=== PATIENT | male | born 1965 | race Caucasian/White ===

== ENCOUNTER 2020-03-17 07:51 | Day surgery (SDC) | payer BC ==
[2020-03-15 10:33] VITALS: BMI 31.1
[~2020-03-17 07:51] MED LIST: LACTATED RINGERS 1,000 ML IV SCH; LIDOCAINE 1% (10MG/ML) FOR IV START INTRADERMA PRN
[2020-03-17 08:27] VITALS: RESP 16; TEMP 97.2
[2020-03-17] MEDS ORDERED: GLYCOPYRROLATE 0.2 MG/ML 2 ML VIAL ONE (09:22)
[2020-03-17] MEDS ORDERED: PROPOFOL 10 MG/ML 20 ML VIAL IV ONE (09:22)
[2020-03-17] MEDS ORDERED: LIDOCAINE 1% INJ 10MG/ML (20 ML MDV) ONE (09:22)
[2020-03-17 10:10] VITALS: BP 119/71
--- NOTE | 2020-03-17 10:17 | P.PCN ---
Date of Procedure: 03/17/20 Description of Procedure: BRIEF HISTORY: Patient is a 54-year-old male presenting for outpatient colonoscopy for screening from malignant neoplasm of the colon. No prior history of colonoscopy. No change in bowel habits, blood per rectum or abdominal pain. PROCEDURE PERFORMED: Colonoscopy with polypectomy. PREOPERATIVE DIAGNOSIS: Screening for malignant neoplasm of the colon, no prior colonoscopy. ESTIMATED BLOOD LOSS: Minimal. IV sedation per Anesthesia. PROCEDURE: After informed consent was obtained, the patient, was brought into the endoscopy unit. IV sedation was administered by Anesthesia under continuous monitoring. Digital rectal examination was normal. Initially the Olympus CF-190 flexible video colonoscope was then inserted in the rectum, gradually advanced into the cecum without any difficulty. Careful examination was performed as the scope was gradually being withdrawn. Ileocecal valve and the appendiceal orifice were visualized and appeared normal. Prep was excellent. Mucosa of the cecum, ascending colon, transverse colon, descending colon, sigmoid colon, and rectum appeared normal. Multiple sigmoid diverticula noted. The patient had 4 diminutive polyps removed from the cecum, transverse colon, and sigmoid colon measuring 2-3 mm in size with cold forcep polypectomy. 2 flat rectal polyps removed with cold snare polypectomy measuring 6 and 7 mm in size. One rectosigmoid polyp measuring 1 cm in size removed with cold snare polypectomy. Retroflexion was performed in the rectum and no lesions were seen. The patient tolerated the procedure well. IMPRESSION: 3 diminutive polyps removed from the cecum, transverse colon and sigmoid colon with cold forceps polypectomy. 3 flat polyps to the rectum and one from the rectosigmoid removed with cold snare polypectomy. Mild sigmoid diverticulosis. RECOMMENDATIONS: Findings of this examination were discussed with the patient revealed features diet. Okay to resume medications. Await pathology from polypectomies. Would recommend repeat colonoscopy in 3 years for high risk colon polyps.
[2020-03-17 10:25] VITALS: PULSE 48
== END 2020-03-17 11:10 | disposition home or self-care (01) ==
LOC: ORWHC2ENDO 07:51
PROVIDERS: ATTEND Internal Medicine
DX: Z12.11 Encounter for screening for malignant neoplasm of colon (principal); D12.0 Benign neoplasm of cecum; D12.7 Benign neoplasm of rectosigmoid junction; D12.8 Benign neoplasm of rectum; Z80.0 Family history of malignant neoplasm of digestive organs; K57.30 Diverticulosis of large intestine without perforation or abscess without bleeding; F17.210 Nicotine dependence, cigarettes, uncomplicated; Z98.818 Other dental procedure status
CPT/HCPCS: 88305; 45380; 45385; J2001; J2704

== ENCOUNTER 2023-11-29 07:57 | Day surgery (SDC) | payer BC ==
[2023-11-28 11:34] VITALS: BMI 31.9
[2023-11-29] MEDS: LACTATED RINGERS 1,000 ML IV SCH (08:21)
[2023-11-29 08:42] VITALS: TEMP 97.3
[2023-11-29] MEDS ORDERED: PROPOFOL 10 MG/ML 20 ML VIAL IV ONE (08:44)
[2023-11-29] MEDS ORDERED: LIDOCAINE 1% INJ 10MG/ML (20 ML MDV) ONE (08:44)
--- NOTE | 2023-11-29 09:02 | P.PCN ---
Date of Procedure: 11/29/23 Procedure(s) Performed: BRIEF HISTORY: Patient is a 58-year-old pleasant White male scheduled for an elective colonoscopy as a part of Screening for colorectal neoplasia PROCEDURE PERFORMED: Colonoscopy With snare polypectomy. PREOPERATIVE DIAGNOSIS: Screening for colon cancer. IV sedation per Anesthesia. PROCEDURE: After informed consent was obtained, the patient, was brought into the endoscopy unit. IV sedation was administered by Anesthesia under continuous monitoring. Digital rectal examination was normal. Initially the Olympus CF-160 flexible video colonoscope was then inserted in the rectum, gradually advanced into the cecum without any difficulty. Careful examination was performed as the scope was gradually being withdrawn. Ileocecal valve and the appendiceal orifice were visualized and appeared normal. Prep was excellent. Mucosa of the cecum, Had a 6 mm sessile polyp that was removed by cold snare polypectomy. Rest of theascending colon, transverse colon, descending colon, sigmoid colon, and rectum appeared normal.Scattered diffuse diverticulosis. Retroflexion was performed in the rectum and no lesions were seen. The patient tolerated the procedure well. IMPRESSION: 6 mm sessile cecal polyp status post cold snare polypectomy Scattered diffuse diverticulosis RECOMMENDATIONS: Findings of this examination were discussed with the patient as well as his family. He was advised to follow with the biopsy results. If the biopsy reveals adenoma he can have a repeat colonoscopy in 5 years.
[2023-11-29 10:08] VITALS: BP 127/67; PULSE 67; RESP 18
== END 2023-11-29 09:37 | disposition home or self-care (01) ==
LOC: ORWHC2ENDO 07:57
PROVIDERS: ATTEND Internal Medicine Gastroenterology
DX: Z12.11 Encounter for screening for malignant neoplasm of colon (principal); D12.0 Benign neoplasm of cecum; K57.30 Diverticulosis of large intestine without perforation or abscess without bleeding; F17.200 Nicotine dependence, unspecified, uncomplicated; K21.9 Gastro-esophageal reflux disease without esophagitis; Z79.899 Other long term (current) drug therapy
CPT/HCPCS: 45385; J2001; J2704; 88305